=== PATIENT | male | born 1985 | race African-American/Black ===

== ENCOUNTER 2024-01-22 09:17 | Emergency (ER) | payer BC, OTHER ==
[2024-01-22 09:39] VITALS: BP 145/93; PULSE 95; RESP 17; TEMP 98.4; BMI 33.0
== END 2024-01-22 11:20 | disposition home or self-care (01) ==
LOC: JERFT 09:17
DX: S01.20XA Unspecified open wound of nose, initial encounter (principal); X58.XXXA Exposure to other specified factors, initial encounter
CPT/HCPCS: 99282-25